=== PATIENT | male | born 1990 | race Caucasian/White ===

== ENCOUNTER 2017-03-09 09:42 | Emergency (ER) | payer OTHER ==
[~2017-03-09] VITALS: Ht 195.6 cm; Wt 147.4 kg
[~2017-03-09 09:42] MED LIST: CYCL10 PO; IBUP400 PO; IBUP800 PO; METPRE4DP PO; RANI150 PO; RXCYCL10 PO
[2017-03-09] MEDS ORDERED: METO100ER PO (09:54)
[2017-03-09] MEDS ORDERED: BUPR150ER PO (09:54)
[2017-03-09] MEDS ORDERED: Celexa40 MG PO (09:56)
[2017-03-09] MEDS ORDERED: IBUP800 PO (12:21)
[2017-03-09] MEDS ORDERED: CYCL10 PO (12:21)
[2017-03-09] MEDS ORDERED: Norco 5-325 Ta1 EACH PO (12:21)
[2018-02-23] MEDS ORDERED: Adderall 15 MG15 MG PO (10:43)
[2018-02-23] MEDS ORDERED: AMPDEX30CR PO (10:43)
[2018-02-23] MEDS ORDERED: Omeprazole20 M1 PO (10:44)
== END 2017-03-09 12:36 | disposition home or self-care (01) ==
LOC: ER 09:42
DX: T14.8XXA Other injury of unspecified body region, initial encounter (principal); M54.2 Cervicalgia; M54.9 Dorsalgia, unspecified; M25.512 Pain in left shoulder; V89.2XXA Person injured in unspecified motor-vehicle accident, traffic, initial encounter; Z79.899 Other long term (current) drug therapy; I10 Essential (primary) hypertension; F32.9 Major depressive disorder, single episode, unspecified; Z87.891 Personal history of nicotine dependence
CPT/HCPCS: 72100; 73030; 96372; 99283; J1885

== ENCOUNTER 2017-08-09 18:42 | Emergency (ER) | payer OTHER ==
[~2017-08-09] VITALS: Ht 195.6 cm; Wt 147.0 kg
[~2017-08-09 18:42] MED LIST changes: +BUPR150ER PO; +Celexa40 MG PO; +METO100ER PO; +Norco 5-325 Ta1 EACH PO
[2017-08-09] MEDS ORDERED: METPHE20 PO (19:05)
[2017-08-09] MEDS ORDERED: METHYLPHENIDATE60 M2 PO (19:05)
[2017-08-09 19:51] LABS: Source, Urine Clean Catch
[2017-08-09 19:57] LABS: Appearance, Urine Clear (Clear); Bilirubin, Urine Neg (Neg); Blood, Urine Neg (Neg); Color, Urine Yellow (P-Yellow); Glucose Qualitative, Urine Neg (Neg); Ketones, Urine Neg (Neg); Leukocyte Esterase, Urine Neg (Neg); Nitrite, Urine Neg (Neg); Protein, Urine Neg (Neg); Urobilinogen, Urine NORM (Normal)
[2017-08-09 21:13] LABS: BASOPHILS ABSOLUTE AUTO 0.07 K/mm3 (0.00-0.23); BASOPHILS PERCENT AUTO 1 % (0-2); EOSINOPHILS PERCENT AUTO 2 % (0-6); Hemoglobin 14.7 g/dL (13.5-17.5); IMMATURE GRAN ABSOLUTE AUTO 0.02 K/mm3 (0.00-0.10); IMMATURE GRAN PERCENT AUTO 0 % (0-1); LYMPHOCYTES ABSOLUTE AUTO 3.33 K/mm3 (0.84-5.20); LYMPHOCYTES PERCENT AUTO 32 % (21-46); MONOCYTES ABSOLUTE AUTO 0.56 K/mm3 (0.16-1.47); MONOCYTES PERCENT AUTO 5 % (4-13); Mean Corpuscular HGB 30.6 pg (26.0-34.0); Mean Corpuscular HGB Conc 34.2 g/dL (31.5-36.5); Mean Corpuscular Volume 89 fL (80-100); Mean Platelet Volume 8.8 fL (9.1-12.4); NEUTROPHILS ABSOLUTE AUTO 6.14 K/mm3 (1.96-9.15); NEUTROPHILS PERCENT AUTO 60 % (41-73); Platelet Count 297 K/mm3 (150-400); RDW Coefficient Variation 11.4 % (11.7-14.2); RDW Standard Deviation 37.1 fL (35.1-46.3); Red Blood Cell Count 4.81 M/mm3 (4.30-5.90); White Blood Cell Count 10.32 K/mm3 (4.00-11.30)
[2017-08-09 21:31] LABS: Alanine Aminotransfer (ALT/SGP 54 U/L (12-78); Albumin, Blood 3.8 g/dL (3.4-5.0); Albumin/Globulin Ratio 1.1 (0.8-1.8); Alk Phos 73 U/L (50-136); Anion Gap 9 mmol/L (6-16); Aspartate Aminotrans (AST/SGOT 17 U/L (12-37); Bilirubin, Total 0.3 mg/dL (0.1-1.0); Blood Urea Nitrogen 15 mg/dL (8-24); Bun/Creatinine Ratio 17.4 (12.0-20.0); CO2, Blood 26 mmol/L (21-32); Calcium, Blood 9.3 mg/dL (8.5-10.1); Chloride, Blood 106 mmol/L (98-108); Creatinine, Blood 0.86 mg/dL (0.60-1.20); Globulin, Blood 3.5 g/dL (2.2-4.0); Glomerular Filtration Rate >60 (60-); Glucose, Blood 86 mg/dL (70-99); Potassium, Blood 3.9 mmol/L (3.5-5.5); Sodium, Blood 141 mmol/L (136-145); Total Protein, Blood 7.3 g/dL (6.4-8.2)
[2017-08-09] MEDS ORDERED: Percocet 5-3251 EACH PO (23:22)
== END 2017-08-09 23:36 | disposition home or self-care (01) ==
LOC: ER 18:42
PROVIDERS: Emergency Medicine
DX: M54.9 Dorsalgia, unspecified (principal); I10 Essential (primary) hypertension; F32.9 Major depressive disorder, single episode, unspecified; F41.9 Anxiety disorder, unspecified; Z79.899 Other long term (current) drug therapy
CPT/HCPCS: 36415; 74176; 80053; 81003; 85025; 96374; 96375; 96376; 99284; J1885; J3010

== ENCOUNTER → 2018-02-03 | Outpatient (CLI) | payer OTHER ==
[~2018-02-03] MED LIST changes: +AMPDEX30CR PO; +Adderall 15 MG15 MG PO; +METHYLPHENIDATE60 M2 PO; +METPHE20 PO; +Omeprazole20 M1 PO; +Percocet 5-3251 EACH PO
[2018-02-03 07:11] LABS: Source, Urine Clean Catch
[2018-02-03 09:59] LABS: Bilirubin, Urine Neg (Neg); Blood, Urine Neg (Neg); Glucose Qualitative, Urine Neg (Neg); Ketones, Urine Neg (Neg); Leukocyte Esterase, Urine Neg (Neg); Nitrite, Urine Neg (Neg); Protein, Urine 1+ (Neg); Specific Gravity, Urine 1.025 (1.003-1.022); Urobilinogen, Urine NORM (Normal)
[2018-02-03 10:09] LABS: Appearance, Urine Clear (Clear); Color, Urine Yellow (P-Yellow)
== END | disposition home or self-care (01) ==
LOC: LAB 07:10 → LAB SHORT 07:10
PROVIDERS: Internal Medicine
DX: R10.9 Unspecified abdominal pain (principal)
CPT/HCPCS: 81003

== ENCOUNTER 2018-02-24 08:49 | Day surgery (SDC) | payer OTHER ==
[~2018-02-24] VITALS: Ht 195.6 cm; Wt 142.5 kg
== END 2018-02-24 10:52 | disposition home or self-care (01) ==
LOC: ORSCSDS 08:49
PROVIDERS: Internal Medicine Gastroenterology
PROC: 0DBB8ZX Excision of Ileum, Via Natural or Artificial Opening Endoscopic, Diagnostic (ICD-10-PCS; principal; 2018-02-24 10:00)
DX: R10.9 Unspecified abdominal pain (principal); K52.9 Noninfective gastroenteritis and colitis, unspecified; I10 Essential (primary) hypertension; Z87.891 Personal history of nicotine dependence; K64.8 Other hemorrhoids; E66.01 Morbid (severe) obesity due to excess calories; Z68.41 Body mass index [BMI] 40.0-44.9, adult; Z79.899 Other long term (current) drug therapy
CPT/HCPCS: 88305; J7120

== ENCOUNTER → 2019-04-18 | Outpatient (CLI) | payer OTHER ==
[2019-04-18 13:36] LABS: Source, Urine Clean Catch
[2019-04-18 15:03] LABS: Appearance, Urine Clear (Clear); Bilirubin, Urine Neg (Neg); Blood, Urine Neg (Neg); Color, Urine Yellow (P-Yellow); Glucose Qualitative, Urine Neg (Neg); Ketones, Urine Neg (Neg); Leukocyte Esterase, Urine Neg (Neg); Nitrite, Urine Neg (Neg); Protein, Urine 1+ (Neg); Urobilinogen, Urine NORM (Normal)
== END | disposition home or self-care (01) ==
LOC: LAB 13:35 → LAB SHORT 13:35 → LAB FUT 04-18 13:20 → EDSTATUS 04-18 13:20
PROVIDERS: Internal Medicine
DX: R30.0 Dysuria (principal)
CPT/HCPCS: 81003

== ENCOUNTER → 2019-07-18 | Outpatient (CLI) | payer OTHER | END | disposition home or self-care (01) | LOC: LAB 08:15 → LAB SHORT 08:15 → LAB FUT 07-02 08:00 | DX: R10.13 Epigastric pain (principal) | CPT/HCPCS: 87338 ==

== ENCOUNTER → 2022-03-02 | Outpatient (CLI) | payer OTHER ==
[2022-03-02 14:28] LABS: Calcium, Urine 14.1 mg/dL (< 17.5); Calcium, Urine Calculation 276.4 mg/24hrs (42.0-353.0)
== END | disposition home or self-care (01) ==
LOC: LAB 07:00 → LAB SHORT 07:00
PROVIDERS: Internal Medicine Endocrinology, Diabetes & Metabolism
DX: E83.52 Hypercalcemia (principal)
CPT/HCPCS: 81050; 82340; 82570

== ENCOUNTER → 2023-03-23 | Outpatient (CLI) | payer OTHER ==
[2023-03-23 12:26] LABS: LDL/HDL RATIO 1.5
[2023-03-23 12:27] LABS: CHOL/HDL RATIO 3.4; Cholesterol 142 mg/dL (50-200); HDL Cholesterol 42 mg/dL (>39); Low Density Lipoprotein Chol 62 mg/dL (0-110); Triglycerides 188 mg/dL (30-140); Very Low Density Lipoprot Chol 37 mg/dL (6-28)
[2023-03-24 08:13] LABS: BILIRUBIN, TOTAL 0.3 mg/dL (0.0-1.2); CALCIUM, SERUM 10.3 mg/dL (8.7-10.2); CREATININE, SERUM 0.98 mg/dL (0.76-1.27); GLOBULIN, TOTAL 2.1 g/dL (1.5-4.5); POTASSIUM, SERUM 4.8 mmol/L (3.5-5.2); PROTEIN, TOTAL, SERUM 6.3 g/dL (6.0-8.5)
[2023-03-25 14:40] LABS: ANTI-NUCLEAR AB ANA,IGG ELISA None Detected (None Detected)
== END ==
LOC: LAB SHORT 10:28 → LAB 10:28
PROVIDERS: Internal Medicine
DX: Z00.00 Encounter for general adult medical examination without abnormal findings (principal); Z13.220 Encounter for screening for lipoid disorders; Z13.29 Encounter for screening for other suspected endocrine disorder; E21.5 Disorder of parathyroid gland, unspecified; E55.9 Vitamin D deficiency, unspecified; M19.90 Unspecified osteoarthritis, unspecified site
CPT/HCPCS: 80053; 80061; 82306; 83970; 84443; 85651; 86038; 86430

== ENCOUNTER 2023-08-03 09:21 | Day surgery (SDC) | payer OTHER ==
[~2023-08-03] VITALS: Ht 195.6 cm; Wt 157.3 kg
[~2023-08-03 09:21] MED LIST changes: +Lactated Ringer's 1,000 ML IV ONE
[2023-08-03] MEDS ORDERED: LOSA25 (09:38)
[2023-08-03] MEDS ORDERED: Lactated Ringer's 1,000 ML IV ONE ×2 (09:57→13:13)
[2023-08-03] MEDS ORDERED: propofoL 40 ML IV ONE (10:27)
[2023-08-03] MEDS ORDERED: Sugammadex Sodium 200 MG/2ML SDV (100 MG/ML) ONE (10:48)
[2023-08-03] MEDS ORDERED: Midazolam HCl 1MG / ML 2ML Vial ONE (10:48)
[2023-08-03] MEDS ORDERED: FentaNYL Citrate 50 MCG/ML 2 ML Injection ONE ×3 (10:48→13:50)
[2023-08-03] MEDS ORDERED: Lidocaine 1%-Epineph 1:200000 30 ML SDV INJ ONE (11:50)
--- NOTE | 2023-08-03 12:11 | NUR ---
08/03/23 1211 Frederic Moss 2% LIDOCAINE WITH EPI 1:100,000 MIXED 1:1 WITH 0.9% INJ NACL TO ACHIEVE SOLUTION OF 1% LIDOCAINE WITH EPI 1:200,000.
[2023-08-03] MEDS ORDERED: OxyCODONE HCL 5 MG TAB ONE ×2 (14:29→16:07)
[2023-08-03] MEDS ORDERED: HYDROmorphone HCl/Pf 1MG SYR ONE (14:40)
[2023-08-03] MEDS ORDERED: Albuterol 2.5 MG/3 ML VIAL ONE (15:53)
--- NOTE | 2023-08-03 16:07 | NUR ---
08/03/23 1607 Dahiana Sales 1535 PT. SATS 91% ENC. DEEP BREATHS WITH SATS UP TO 94% RA. 1542 O2 SATS DOWN TO 86% UPON COMING INTO PT. ROOM. TALKED TO PT. & SATS UP TO 94% RA. VERBALIZES THEY WERE HAVING A CONVERSATION WHEN HIS SATS DOWN TO 86%. VERBALIZES HE FEELS LIKE HE CAN'T EXPAND HIS LUNGS. PT. STATES "CAPACITY FOR MY BREATHS FEELS LOWER." ORDER FOR ALBUTEROL PER ANESTHESIA, ALBUTEROL GIVEN PER DR. ZAMORANO.
[2023-08-03 16:36] VITALS: BP 154/85
== END 2023-08-03 16:57 | disposition home or self-care (01) ==
LOC: ORSCSDS 09:21
PROVIDERS: Otolaryngology
PROC: 0GTH0ZZ Resection of Right Thyroid Gland Lobe, Open Approach (ICD-10-PCS; principal; 2023-08-03 10:45)
DX: C73 Malignant neoplasm of thyroid gland (principal); I10 Essential (primary) hypertension; G47.33 Obstructive sleep apnea (adult) (pediatric); K21.9 Gastro-esophageal reflux disease without esophagitis; F17.290 Nicotine dependence, other tobacco product, uncomplicated; F90.9 Attention-deficit hyperactivity disorder, unspecified type; F41.8 Other specified anxiety disorders; E66.01 Morbid (severe) obesity due to excess calories; Z68.41 Body mass index [BMI] 40.0-44.9, adult; Z79.899 Other long term (current) drug therapy
CPT/HCPCS: 88307; A9270; J1170; J2250; J2704; J3010; J7120

== ENCOUNTER → 2023-09-15 | Outpatient (CLI) | payer OTHER ==
[~2023-09-15] MED LIST changes: +LOSA25; -Lactated Ringer's 1,000 ML IV ONE
[2023-09-15 18:13] LABS: Bun/Creatinine Ratio 12.2 (12.0-20.0); Calcium, Blood 10.2 mg/dL (8.5-10.1); Creatinine, Blood 1.15 mg/dL (0.60-1.20); Potassium, Blood 3.9 mmol/L (3.5-5.5)
== END | disposition home or self-care (01) ==
LOC: LAB 17:04 → LAB SHORT 17:04
PROVIDERS: Otolaryngology
DX: Z01.812 Encounter for preprocedural laboratory examination (principal); D35.1 Benign neoplasm of parathyroid gland
CPT/HCPCS: 80048

== ENCOUNTER 2023-09-28 06:15 | Day surgery (SDC) | payer OTHER ==
[~2023-09-28] VITALS: Ht 195.6 cm; Wt 160.4 kg
[2023-09-28] MEDS ORDERED: HYDROmorphone HCl/Pf 1MG SYR ONE ×4 (06:53→11:12)
[2023-09-28] MEDS ORDERED: SuccINYLCHOLINE Chloride 100 MG/5 ML 5MLSYR ONE (06:53)
[2023-09-28] MEDS ORDERED: propofoL 40 ML IV ONE (06:53)
[2023-09-28] MEDS ORDERED: Midazolam HCl 1MG / ML 2ML Vial ONE (06:53)
[2023-09-28] MEDS ORDERED: Lidocaine 2%-Epineph 1:200000 20 ML SDV ONE (07:00)
[2023-09-28] MEDS ORDERED: Dexmedetomidine HCL 200 MCG / 2 ML ONE (07:01)
[2023-09-28] MEDS ORDERED: Lactated Ringer's 1,000 ML IV ONE ×3 (07:15→08:30)
[2023-09-28] MEDS ORDERED: Phenylephrine HCl 100 MCG/ML-NS 10MLSYR (1MG/10ML) ONE (07:52)
[2023-09-28] MEDS ORDERED: propofoL 20 ML IV ONE (07:52)
[2023-09-28] MEDS ORDERED: Dexamethasone Sod Phos 10 MG/ML 1ML VIAL ONE (08:20)
[2023-09-28] MEDS ORDERED: Bacitracin Opth Ointment XX ONE (10:11)
[2023-09-28] MEDS ORDERED: Ondansetron HCl 2 MG / ML 2ML Vial ONE (10:31)
[2023-09-28 11:46] VITALS: BP 136/82
--- NOTE | 2023-09-28 13:37 | NUR ---
09/28/23 1337 Everardo Perez PT MAINTAINED O2 93-96% IN SDU WITH BREIF DROPS TO 92%. O2 RETURNED TO >93% SPONTANEOUSLY. PT DENIED SOB, CP, DIZZIENESS, AND OTHER RESPIRATORY SYMPTOMS; AND NONE WERE OBSERVED. COURTNEY SPARKS CONSULTED AND APPROVED D/C. PT INSTRUCTED TO SLEEP WITH CPAP AND HEAD OF BED ELEVATED. SAID SHE WOULD MONITOR PT. PT REPORTED 8/10 PAIN UPON D/C, BUT HE DESCRIBED PAIN TOLERABLE FOR RETURNING HOME. HE EXPRESSED READINESS TO RETURN HOME.
== END 2023-09-28 12:15 | disposition home or self-care (01) ==
LOC: ORSCSDS 06:15
PROVIDERS: Otolaryngology
PROC: 0GTM0ZZ Resection of Left Superior Parathyroid Gland, Open Approach (ICD-10-PCS; principal; 2023-09-28 07:30)
DX: D35.1 Benign neoplasm of parathyroid gland (principal); I10 Essential (primary) hypertension; G47.33 Obstructive sleep apnea (adult) (pediatric); E03.9 Hypothyroidism, unspecified; Z79.899 Other long term (current) drug therapy; F90.9 Attention-deficit hyperactivity disorder, unspecified type; E66.01 Morbid (severe) obesity due to excess calories; Z68.41 Body mass index [BMI] 40.0-44.9, adult
CPT/HCPCS: 83970; 88305; 88331; A9270; J0330; J1100; J1170; J2250; J2371; J2405; J2704; J7120

== ENCOUNTER → 2024-11-07 | Outpatient (CLI) | payer OTHER ==
[2024-11-07 08:33] LABS: BASOPHILS ABSOLUTE AUTO 0.08 K/mm3 (0.00-0.23); BASOPHILS PERCENT AUTO 1 % (0-2); EOSINOPHILS ABSOLUTE AUTO 0.31 K/mm3 (0.00-0.68); EOSINOPHILS PERCENT AUTO 3 % (0-6); Hematocrit 41.9 % (37.0-53.0); Hemoglobin 14.4 g/dL (13.5-17.5); IMMATURE GRAN ABSOLUTE AUTO 0.02 K/mm3 (0.00-0.10); IMMATURE GRAN PERCENT AUTO 0 % (0-1); LYMPHOCYTES ABSOLUTE AUTO 3.33 K/mm3 (0.84-5.20); LYMPHOCYTES PERCENT AUTO 35 % (21-46); MONOCYTES ABSOLUTE AUTO 0.55 K/mm3 (0.16-1.47); MONOCYTES PERCENT AUTO 6 % (4-13); Mean Corpuscular HGB Conc 34.4 g/dL (31.5-36.5); Mean Corpuscular Volume 90 fL (80-100); NEUTROPHILS ABSOLUTE AUTO 5.31 K/mm3 (1.96-9.15); NEUTROPHILS PERCENT AUTO 55 % (41-73); NRBC ABSOLUTE 0.00 K/mm3 (0.00-0.02); NRBC Auto 0.0 /100 WBC (0.0-0.2); Platelet Count 347 K/mm3 (150-400); RDW Coefficient Variation 12.1 % (11.7-14.2); RDW Standard Deviation 39.3 fL (35.1-46.3)
[2024-11-07 08:50] LABS: Alanine Aminotransfer (ALT/SGP 54 U/L (12-78); Albumin, Blood 3.6 g/dL (3.4-5.0); Albumin/Globulin Ratio 1.1 (0.8-1.8); Anion Gap 9 mmol/L (3-11); Aspartate Aminotrans (AST/SGOT 20 U/L (12-37); Bilirubin, Total 0.3 mg/dL (0.1-1.0); Blood Urea Nitrogen 15 mg/dL (8-24); CHOL/HDL RATIO 2.9; CO2, Blood 26 mmol/L (21-32); Calcium, Blood 8.6 mg/dL (8.5-10.1); Chloride, Blood 105 mmol/L (98-108); Cholesterol 139 mg/dL (50-200); Creatinine, Blood 0.97 mg/dL (0.60-1.20); Globulin, Blood 3.3 g/dL (2.2-4.0); Glucose, Blood 103 mg/dL (70-99); HDL Cholesterol 48 mg/dL (>39); LDL/HDL RATIO 1.4; Low Density Lipoprotein Chol 67 mg/dL (0-110); Potassium, Blood 3.6 mmol/L (3.5-5.5); Sodium, Blood 136 mmol/L (136-145); Total Protein, Blood 6.9 g/dL (6.4-8.2); Triglycerides 118 mg/dL (30-140); Very Low Density Lipoprot Chol 23 mg/dL (6-28)
[2024-11-09 06:12] LABS: LIPOPROTEIN (A) <6 mg/dL (<=29)
== END | disposition home or self-care (01) ==
LOC: LAB 07:04 → LAB SHORT 07:04
PROVIDERS: Internal Medicine
DX: Z00.00 Encounter for general adult medical examination without abnormal findings (principal); Z13.1 Encounter for screening for diabetes mellitus; Z13.21 Encounter for screening for nutritional disorder; Z13.220 Encounter for screening for lipoid disorders; E21.5 Disorder of parathyroid gland, unspecified
CPT/HCPCS: 80053; 80061; 82306; 83036; 83695; 85025